=== PATIENT | female | born 1965 | race Caucasian/White ===

== ENCOUNTER 2019-02-04 13:00 | Emergency (ER) | payer MEDICAID ==
[2019-02-04] MEDS ORDERED: Aspirin 81 MG Tab.Chew PO ONE (13:13)
[2019-02-04] MEDS ORDERED: Sodium Chloride 0.9% 10 ML Syringe FLUSH PRN (13:14)
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
--- NOTE | 2019-02-04 14:11 | CR ---
[id number] RAD/RAD Chest PA And Lateral EXAM: FRONTAL AND LATERAL CHEST INDICATION: Syncope and bradycardia. COMPARISON: September 22, 2011. DISCUSSION: Hyperinflation is compatible with chronic obstructive pulmonary disease. Mild chronic scarring in the left lung base with no definite acute infiltrates. Normal heart size. IMPRESSION: 1. Chronic obstructive pulmonary disease. No acute findings. Ever Sanchez MD 02/04/19 [id number] Thank you for allowing us to participate in the care of your patient.
[2019-02-04 14:17] VITALS: BP 113/65; PULSE 90
[2019-02-04 14:22] LABS: ANION GAP 16.9 mmol/L (10-20); CHLORIDE,CL 106 mmol/L (54-184); SODIUM,NA 145 mmol/L (69-191)
== END 2019-02-04 14:46 | disposition home or self-care (01) ==
LOC: VM.ED 13:00
DX: R07.89 Other chest pain (principal); K21.9 Gastro-esophageal reflux disease without esophagitis; Z88.0 Allergy status to penicillin; Z88.5 Allergy status to narcotic agent; Z88.1 Allergy status to other antibiotic agents; Z88.8 Allergy status to other drugs, medicaments and biological substances; Z79.899 Other long term (current) drug therapy; Z88.2 Allergy status to sulfonamides
CPT/HCPCS: 36415; 71046; 80053; 84443; 84484; 85025; 85379; 85610; 86140; 93005; 99285; A9270

== ENCOUNTER 2020-08-21 17:49 | Observation (INO) | payer MEDICAID ==
[2020-08-21] MEDS ORDERED: Sodium Chloride 0.9% 1,000 ML IV ONE (17:55)
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
[2020-08-21] MEDS ORDERED: hydrOXYzine HCl 25 MG Tab PO ONE (18:36)
--- NOTE | 2020-08-21 18:41 | CR ---
[id number] RAD/RAD Chest PA or AP 1V EXAM: RAD Chest PA or AP 1V INDICATION: SVT COMPARISON: February 04, 2019. DISCUSSION: Cardiomediastinal silhouette is normal in size and contour. No infiltrate, effusion, pneumothorax, or edema. Pulmonary hyperinflation. Left basilar subsegmental atelectasis and/or scarring IMPRESSION: No acute cardiopulmonary abnormality. Etienne Levy DO 08/21/20 1839 Thank you for allowing us to participate in the care of your patient.
[2020-08-21 18:58] LABS: CHLORIDE,CL 105 mmol/L (98-107); SODIUM,NA 144 mmol/L (136-145)
[2020-08-21 19:00] LABS: ANION GAP 16.7 mmol/L (5-15)
[2020-08-21] MEDS ORDERED: LORazepam 2 MG/ML SDV IVPUSH ONE (19:20)
[2020-08-21] MEDS ORDERED: methylPREDNISolone Sodium Succinate 125 MG/2 ML SDV IV ONE (20:09)
[2020-08-21] MEDS ORDERED: Ketorolac 15 MG/ML SDV IVPUSH ONE (20:10)
[2020-08-22] MEDS ORDERED: tiZANidine 4 MG Tab PO PRN (01:00)
[2020-08-22] MEDS ORDERED: Albuterol HFA 18 Gm Inhaler INH PRN (01:00)
[2020-08-22] MEDS ORDERED: Diazepam 5 MG Tab PO PRN (01:00)
[2020-08-22] MEDS ORDERED: ACYCLOVIR TOP PRN (01:00)
[2020-08-22] MEDS ORDERED: Omeprazole 20 MG Cap.CR PO PRN (01:00)
[2020-08-22] MEDS ORDERED: traMADol 50 MG Tab PO PRN (01:00)
[2020-08-22] MEDS: methylPREDNISolone Sodium Succinate 125 MG/2 ML SDV IV SCH ×2 (01:25→08:13)
[2020-08-22] MEDS ORDERED: Ketorolac 15 MG/ML SDV IVPUSH PRN (02:00)
[2020-08-22 06:04] VITALS: BP 109/63; PULSE 72
[2020-08-22] MEDS ORDERED: Non-Formulary Medication 1 Each (Cyclosporine [Restasis Multidose] 5.5 ML Drops) EYEBOTH SCH (08:00)
[2020-08-22] MEDS ORDERED: [UNRECOGNIZED DRUG - REMARK] PO SCH (08:00)
[2020-08-22] MEDS ORDERED: Ascorbic Acid 500 MG Tab PO SCH (08:00)
[2020-08-22] MEDS ORDERED: VITAMIN E 100 UNIT PO SCH (08:00)
[2020-08-22] MEDS ORDERED: Cholecalciferol (Vitamin D3) 10 MCG Tab PO SCH (08:00)
[2020-08-22] MEDS ORDERED: Mirtazapine 15 MG Tab PO SCH (20:00)
--- NOTE | 2020-08-25 00:32 | PCM.DCSUM1 ---
Discharge Summary - Hospital Course Free Text/Narrative:: Pt. was admitted observation following an episode of SVT. Pt. was given IV adenosine by EMS and converted immediately. Initial trop I was negative. No evidence of ischemic change was noted on post conversion EKG. Troponin was trended. Repeat troponin after 4 hours was 52. This was rechecked in the AM and it had decreased to 21. Pt. did not have any acute EKG change/ST-T wave abnormality during the time. Pt. was experiencing respirophasic chest discomfort, worse with movement and palpation, consistent with musculoskeletal cause of discomfort. Chest x-ray was negative. Pt. was started on IV solu medrol and toradol for this discomfort. Pt. did not experience any fever, chills, shortness of breath, or other worrisome signs/symptoms. No further episodes of SVT. Diagnosis: Stroke: No - Discharge Data Discharge Date: 08/21/20 Discharge Disposition: Home, Self-Care 01 Condition: Good - Referral to Home Health Primary Care Physician: Farzaneh Fraser, DO - Discharge Diagnosis/Problem(s) (1) Atypical chest pain SNOMED Code(s): 740758770 ICD Code: R07.89 - OTHER CHEST PAIN Status: Acute (2) SVT (supraventricular tachycardia) SNOMED Code(s): 7381773 ICD Code: I47.1 - SUPRAVENTRICULAR TACHYCARDIA Status: Acute - Discharge Plan Home Medications: Home Meds Acyclovir [Zovirax 5% Oint] 1 applic TOP ASDIRECTED PRN 02/18/18 [History] Albuterol [Ventolin HFA] 2 puff PO Q4H PRN 02/18/18 [History] Ascorbic Acid [Vitamin C] 250 mg PO DAILY 02/18/18 [History] Cholecalciferol (Vitamin D3) [Vitamin D3] 400 unit PO DAILY 02/18/18 [History] Hydrocortisone Acetate [Anucort-HC] 25 mg RECTAL BID 02/18/18 [History] Ipratropium [Atrovent 0.06% Nasal [place]] 2 spray TREE TID 02/18/18 [History] Krill/Om-3/DHA/EPA/Phospho/Ast [[place]-3 Krill Oil 300 mg Sfgl] 300 mg PO BID 02/18/18 [History] Mirtazapine [Remeron] 7.5 mg PO BEDTIME 02/18/18 [History] Omeprazole Magnesium [Prilosec Otc] 20 mg PO DAILY PRN 02/18/18 [History] Pediatric Multivitamin No.136 [Children Multivitamin] 1 tab PO DAILY 02/18/18 [History] Vitamin E 100 unit PO DAILY 02/18/18 [History] cycloSPORINE [Restasis Multidose] 1 drop EYEBOTH BID 02/18/18 [History] diazePAM [Valium.] 2.5 - 5 mg PO Q6H PRN 02/18/18 [History] ondansetron HCL [Zofran] 4 mg PO Q4H PRN 02/18/18 [History] traMADol [Ultram] 50 mg PO Q6H PRN 02/18/18 [History] [place]-3 Acid Ethyl Esters [Lovaza] 1 cap PO BIDMEALS 08/21/20 [History] tiZANidine [Zanaflex] 1 tbs PO BID PRN 08/21/20 [History] Patient Handouts: Supraventricular Tachycardia, Adult, [id number], Metoprolol tablets, Prednisone tablets Forms: ED Department Discharge Referrals: Farzaneh Fraser DO [Primary Care Provider] - - Discharge Summary/Plan Comment DC Time >30 min.: Yes Discharge Summary/Plan Comment: Home to rest. Off work today and tomorrow. Start prednisone 40mg once daily for 7 days for chest wall pain. Start Metoprolol 25mg 1 tab twice daily to decrease your chances of this happening again. Follow-up in clinic with Dr. Fraser in about 2 weeks, sooner if not gradually improving. Return to ER if you have recurrent racing of your heart, increasing chest pain, or shortness of breath. - General Info Functional Status: Reports: Pain Controlled, Tolerating Diet, Ambulating, Urinating - Review of Systems General: Reports: No Symptoms HEENT: Reports: No Symptoms Pulmonary: Reports: Pleuritic Chest Pain Cardiovascular: Reports: Chest Pain, Other Gastrointestinal: Reports: No Symptoms Genitourinary: Reports: No Symptoms Musculoskeletal: Reports: No Symptoms Skin: Reports: No Symptoms Neurological: Reports: No Symptoms Psychiatric: Reports: No Symptoms - Patient Data Vitals - Most Recent: Last Vital Signs Temp 36.2 C 08/22/20 06:00 Pulse 72 08/22/20 06:00 Resp 16 08/22/20 06:00 BP 109/63 08/22/20 06:00 Pulse Ox 92 L 08/22/20 06:00 Weight - Most Recent: 61.689 kg Med Orders - Current: Current Medications Discontinued Medications Albuterol (Albuterol Hfa 18 Gm Inhaler) 0 gm INH Q4H PRN PRN Reason: Shortness of Breath Ascorbic Acid (Ascorbic Acid 500 Mg Tab) 250 mg PO DAILY [facility] Last Admin: 08/22/20 08:13 Dose: 250 mg Documented by: Cholecalciferol (Cholecalciferol (Vitamin D3) 10 Mcg Tab) 10 mcg PO DAILY [facility] Last Admin: 08/22/20 08:12 Dose: 10 mcg Documented by: Diazepam (Diazepam 5 Mg Tab) 2.5 - 5 mg PO Q6H PRN PRN Reason: Anxiety Hydroxyzine HCl (Hydroxyzine Hcl 25 Mg Tab) 50 mg PO ONETIME ONE Stop: 08/21/20 18:37 Last Admin: 08/21/20 18:45 Dose: 50 mg Documented by: Sodium Chloride (Normal Saline) 1,000 mls @ 1,000 mls/hr IV ONETIME ONE Stop: 08/21/20 18:54 Last Admin: 08/21/20 18:44 Dose: 1,000 mls/hr Documented by: Ketorolac Tromethamine (Ketorolac 15 Mg/Ml Sdv) 15 mg IVPUSH ONETIME ONE Stop: 08/21/20 20:11 Last Admin: 08/21/20 20:23 Dose: 15 mg Documented by: Ketorolac Tromethamine (Ketorolac 15 Mg/Ml Sdv) 15 mg IVPUSH Q6H PRN PRN Reason: Pain Stop: 08/26/20 02:01 Lorazepam (Lorazepam 2 Mg/Ml Sdv) 1 mg IVPUSH STAT ONE Stop: 08/21/20 19:21 Last Admin: 08/21/20 19:25 Dose: 1 mg Documented by: Methylprednisolone Sodium Succinate (Methylprednisolone Sodium Succinate 125 Mg/2 Ml Sdv) 125 mg IV ONETIME ONE Stop: 08/21/20 20:10 Last Admin: 08/21/20 20:23 Dose: 125 mg Documented by: Methylprednisolone Sodium Succinate (Methylprednisolone Sodium Succinate 125 Mg/2 Ml Sdv) 125 mg IV Q6H [facility] Last Admin: 08/22/20 08:13 Dose: 125 mg Documented by: Mirtazapine (Mirtazapine 15 Mg Tab) 7.5 mg PO BEDTIME [facility] Non-Formulary Medication (Acyclovir) 1 applic TOP ASDIRECTED PRN PRN Reason: Other Non-Formulary Medication (Cyclosporine [Restasis Multidose]) 1 drop EYEBOTH BID [facility] Non-Formulary Medication (Krill/Om-3/Dha/Epa/Phospho/Ast [[place]-3 Krill Oil 300 Mg Sfgl]) 300 mg PO BID [facility] Non-Formulary Medication ([place]-3 Acid Ethyl Esters [Lovaza]) 1 cap PO BIDMEALS [place] Non-Formulary Medication (Pediatric Multivitamin No.136 [Children Multivitamin]) 1 tab PO DAILY [place] Non-Formulary Medication (Vitamin E [Vitamin E]) 100 unit PO DAILY [place] Omeprazole (Omeprazole 20 Mg Cap.Cr) 20 mg PO DAILY PRN PRN Reason: Heartburn Tizanidine HCl (Tizanidine 4 Mg Tab) 2 mg PO BID PRN PRN Reason: muscle spasam Tramadol HCl (Tramadol 50 Mg Tab) 50 mg PO Q6H PRN PRN Reason: Pain (severe 7-10) - Exam General: Reports: Alert, Oriented HEENT: Reports: EOMI, Mucous Membr. Moist/[place] Neck: Reports: Supple Lungs: Reports: Clear to Auscultation, Normal Respiratory Effort Cardiovascular: Reports: Regular Rate, Regular Rhythm GI/Abdominal Exam: Soft, Non-Tender, No Organomegaly, No Distention, No Mass (Female) Exam: Deferred Rectal (Female) Exam: Deferred Back Exam: Reports: Normal Inspection, Full Range of Motion Extremities: Normal Inspection, Normal Range of Motion, Non-Tender, No Pedal Edema, Normal Capillary Refill Skin: Reports: Warm, Dry, Intact Neurological: Reports: No New Focal Deficit Psy/Mental Status: Reports: Alert, Normal Affect, Normal Mood
== END 2020-08-22 09:25 | disposition home or self-care (01) ==
LOC: VM.ED 17:49 → VM.MS 20:03
PROVIDERS: ADMIT Physician Assistant; ATTEND Physician Assistant
DX: R07.89 Other chest pain (principal); I47.1 Supraventricular tachycardia; E78.00 Pure hypercholesterolemia, unspecified; Z20.822 Contact with and (suspected) exposure to COVID-19; Z88.0 Allergy status to penicillin; Z88.1 Allergy status to other antibiotic agents; Z88.2 Allergy status to sulfonamides; Z88.6 Allergy status to analgesic agent; Z88.8 Allergy status to other drugs, medicaments and biological substances; Z79.899 Other long term (current) drug therapy; Z98.890 Other specified postprocedural states
CPT/HCPCS: 36415; 71045; 80053; 84484; 85025; 93005; 96374; 96375; 96376; 99285-25; A9270-GY; G0378; J1885; J2060; J2930; J7030; U0002

== ENCOUNTER 2025-01-18 08:03 | Day surgery (SDC) | payer MEDICAID ==
[~2025-01-18 08:03] MED LIST: Dexamethasone/Neomycin/Polymyxin B Ophth Oint 3.5 GM Tube ONE; Lidocaine 1% 2 ML ONE; Phenyleprhine/Ketorolac 4 ML Vial ONE; Povidone-Iodine 5% Sterile Ophth Soln 30 ML Bottle ONE; acetaZOLAMIDE 500 MG Cap.ER PO ONE
[2025-01-18] MEDS: Cyclopentolate 1% Opth Soln 2 ML Bottle EYELF SCH (08:19)
[2025-01-18] MEDS: Moxifloxacin 0.5% Ophth Soln 3 ML Bottle EYELF ONE ×2 (08:38→09:47)
[2025-01-18] MEDS ORDERED: Midazolam 1 MG/ML 2 ML SDV ONE (09:13)
[2025-01-18] MEDS ORDERED: fentaNYL 100 MCG/2 ML SDV ONE (09:14)
[2025-01-18] MEDS: Povidone-Iodine 5% Sterile Ophth Soln 30 ML Bottle EYELF ONE (09:47)
[2025-01-18] MEDS: Lidocaine 1% PF 2 ML SDV INFILT ONE (09:48)
[2025-01-18] MEDS: Chondroitin Sulfate/Hyaluronate Sodium Ophth Inj 0.5 ML Syringe IOCULAR ONE (09:48)
[2025-01-18] MEDS: Phenyleprhine/Ketorolac 4 ML Vial IOCULAR ONE (09:48)
[2025-01-18] MEDS: Balanced Salt Solution Ophth Irrig 500 ML Bottle IOCULAR ONE (09:48)
[2025-01-18] MEDS: Dexamethasone/Neomycin/Polymyxin B Ophth Oint 3.5 GM Tube EYELF ONE (09:49)
[2025-01-18 10:33] VITALS: BP 141/63; PULSE 68
== END 2025-01-18 10:28 | disposition home or self-care (01) ==
LOC: VM.SDS 08:03
PROVIDERS: ATTEND Ophthalmology
DX: H25.813 Combined forms of age-related cataract, bilateral (principal); K21.9 Gastro-esophageal reflux disease without esophagitis; F17.210 Nicotine dependence, cigarettes, uncomplicated; Z88.0 Allergy status to penicillin; Z88.5 Allergy status to narcotic agent; Z79.899 Other long term (current) drug therapy
CPT/HCPCS: 00142; A9270-GY; J0690; J1097; J2003; J2250; J3010; J3490; V2632

== ENCOUNTER 2025-02-22 06:50 | Day surgery (SDC) | payer MEDICAID ==
[~2025-02-22 06:50] MED LIST changes: +Sodium Chloride 0.9% 10 ML Syringe FLUSH PRN; -acetaZOLAMIDE 500 MG Cap.ER PO ONE
[2025-02-22] MEDS: Cyclopentolate 1% Opth Soln 2 ML Bottle EYERT SCH (07:00)
[2025-02-22] MEDS: Moxifloxacin 0.5% Ophth Soln 3 ML Bottle EYERT ONE ×2 (07:21→08:59)
[2025-02-22] MEDS ORDERED: fentaNYL 100 MCG/2 ML SDV ONE (08:09)
[2025-02-22] MEDS ORDERED: Midazolam 1 MG/ML 2 ML SDV ONE (08:10)
[2025-02-22] MEDS: Balanced Salt Solution Ophth Irrig 500 ML Bottle IOCULAR ONE (08:59)
[2025-02-22] MEDS: Phenyleprhine/Ketorolac 4 ML Vial IOCULAR ONE (08:59)
[2025-02-22] MEDS: Povidone-Iodine 5% Sterile Ophth Soln 30 ML Bottle EYERT ONE (08:59)
[2025-02-22] MEDS: Lidocaine 1% PF 2 ML SDV INFILT ONE (09:00)
[2025-02-22] MEDS: Chondroitin Sulfate/Hyaluronate Sodium Ophth Inj 0.5 ML Syringe IOCULAR ONE (09:00)
[2025-02-22] MEDS: Dexamethasone/Neomycin/Polymyxin B Ophth Oint 3.5 GM Tube EYERT ONE (09:01)
[2025-02-22 09:16] VITALS: PULSE 68
[2025-02-22 09:24] VITALS: BP 122/68
== END 2025-02-22 09:38 | disposition home or self-care (01) ==
LOC: VM.SDS 06:50
PROVIDERS: ATTEND Ophthalmology
DX: H25.811 Combined forms of age-related cataract, right eye (principal); F41.9 Anxiety disorder, unspecified; F32.A Depression, unspecified; K21.9 Gastro-esophageal reflux disease without esophagitis; Z88.1 Allergy status to other antibiotic agents; Z88.0 Allergy status to penicillin; Z88.5 Allergy status to narcotic agent; Z88.8 Allergy status to other drugs, medicaments and biological substances; Z79.899 Other long term (current) drug therapy
CPT/HCPCS: 66984; A9270; J0690; J1097; J2003; J2250; J3010; V2632; 00142; J3490